=== PATIENT | female | born 1935 | race African-American/Black ===

== ENCOUNTER 2017-05-22 07:18 | Inpatient (IN) | payer MEDICARE, BC ==
[~2017-05-22] VITALS: Ht 160 cm; Wt 110.4 kg
[~2017-05-22 07:18] MED LIST: AMARYL PO; ASPIRIN E.C. 8181 MG PO; COUMADIN 77.5 MG/TAB PO; COUMADIN4 MG PO; COZAAR 25MG25 MG/TAB PO; COZAAR100 MG PO; CRESTOR40 MG PO; DIOVAN160 MG PO; JANUVIA 100MG100 MG PO; JANUVIA100 MG PO; LASIX 40MG TABL40 MG PO; LEVEMIR100 U/ML SC; LIPITOR 40MG TA40 MG PO; LIPITOR40 MG PO; MS CONTIN 330 MG/TAB PO; NIFEDIPINE PO; NORCO 325 MG-51 TAB PO; NOVLOG SQ; PRILOTC PO; PROCARDIA XL90 MG PO; TYLENOL 325MG325 MG PO; WARFARIN SODIUM5 MG PO
[2017-05-22 08:08] LABS: ARTERIAL BLD GAS O2 SATURATION 91.2 % (92-100); ARTERIAL BLD GAS TCO2 CT 18.3; ARTERIAL BLOOD GAS BASE EXCESS -8.1 (-2-2); ARTERIAL BLOOD GAS HCO3 17.3 meq/L (22-26); ARTERIAL BLOOD GAS PCO2 34.5 mmHg (35-45); ARTERIAL BLOOD GAS PO2 67.3 mmHg (80-100); ARTERIAL BLOOD GAS pH 7.32 (7.35-7.45)
[2017-05-22] MEDS ORDERED: PROCARDIA XL90 MG PO (08:20)
[2017-05-22] MEDS ORDERED: PRIL40 PO (08:21)
[2017-05-22] MEDS ORDERED: JANUVIA 100MG100 MG PO (08:21)
[2017-05-22] MEDS ORDERED: PRILOTC PO (08:22)
[2017-05-22] MEDS ORDERED: COZAAR100 MG PO (08:22)
[2017-05-22] MEDS ORDERED: LASIX 40MG TABL40 MG PO (08:23)
[2017-05-22] MEDS ORDERED: CRESTOR40 MG PO (08:24)
[2017-05-22] MEDS ORDERED: COUMADIN 77.5 MG/TAB PO (08:24)
[2017-05-22 08:46] LABS: INFLUENZA A NEGATIVE; INFLUENZA B NEGATIVE
[2017-05-22 10:33] LABS: BASO % 0.3 % (0.0-2.0); EOS % 0.3 % (0-4.0); GRAN # 4.6 (1.4-6.5); GRAN % 70.5 % (42.2-75.2); LYMPH # 1.4 (1.2-3.4); LYMPH % 22.3 % (20.0-51.0); MEAN CELL VOLUME 88 fl (80.0-100.0); MEAN CORPUSCULAR HGB CONC 29 g/dl (33.0-37.0); MEAN PLATELET VOLUME 11.6 fl (7.4-10.4); MONO # 0.4 (0.1-0.6); MONO % 6.3 % (1.7-9.3); PLATELET COUNT 173 K/mm3 (130-400); RED BLOOD COUNT 2.75 M/mm3 (4.10-5.30); REDCELL DISTRIBUTION WIDTH-CV 16.1 % (11.5-14.5)
[2017-05-22 10:39] LABS: HEMATOCRIT 24.1 % (37.0-47.0); HEMOGLOBIN 6.9 g/dl (12.5-16.0); MEAN CORPUSCULAR HEMOGLOBIN 25 pg (27.0-31.0)
[2017-05-22 10:53] LABS: INR 2.7 (0.8-3.0); PROTHROMBIN TIME 31.4 SECONDS (9.7-12.8)
[2017-05-22 11:01] LABS: ALBUMIN 4.1 gm/dL (3.5-5.0); BILIRUBIN,TOTAL 0.3 mg/dL (0.0-1.0); POTASSIUM 5.4 mmol/L (3.4-5.0); TOTAL PROTEIN 7.7 gm/dL (6.4-8.2)
[2017-05-22 11:12] LABS: TROPONIN-I 0.02 ng/mL (0.000-0.034)
[2017-05-22 11:15] LABS: CREATININE, serum 5.23 mg/dL (0.52-1.25)
[2017-05-22 13:02] VITALS: BP 151/65; PULSE 55; TEMP 98
[2017-05-22] MEDS ORDERED: COUMADIN 6MG6 MG/TAB PO (13:09)
[2017-05-22 13:22] LABS: COLLECTION METHOD CATHETER
[2017-05-22 13:27] LABS: PH 5 (5-8); SQUAMOUS EPITHELIAL 0-2 /hpf; URINE APPEARANCE Hazy; URINE BACTERIA None Seen /hpf; URINE BILIRUBIN Negative (NEGATIVE); URINE BLOOD 2+ (NEGATIVE); URINE COLOR Straw; URINE GLUCOSE Negative (NEGATIVE); URINE KETONE Negative (NEGATIVE); URINE LEUKOCYTE ESTERASE Negative (NEGATIVE); URINE NITRATE Negative (NEGATIVE); URINE PROTEIN(semi-quant) 1+ (NEGATIVE); URINE UROBILINOGEN Negative (NEGATIVE); URINE WBC 0-2 /hpf
[2017-05-22 13:32] LABS: URINE PROTEIN:CREAT RATIO 0.47 (0.00-0.14)
[2017-05-22 14:50] LABS: PHOSPHOROUS 4.8 mg/dL (2.5-4.5)
[2017-05-22 16:48] VITALS: BP 151/75; PULSE 84; TEMP 98.1
[2017-05-22 21:03] VITALS: BP 141/66; PULSE 66; TEMP 98.1
[2017-05-22 23:28] VITALS: BP 150/72; PULSE 54; TEMP 98.2
[2017-05-23] VITALS (8 sets, daily range): BP systolic 114–146; BP diastolic 58–86; PULSE 57–124; TEMP 97.4–98.5
[2017-05-23 08:01] LABS: INR 2.6 (0.8-3.0); PROTHROMBIN TIME 30.1 SECONDS (9.7-12.8)
[2017-05-23 08:08] LABS: ALBUMIN 3.7 gm/dL (3.5-5.0); CALCIUM 6.7 mg/dL (8.4-10.2); PHOSPHOROUS 4.8 mg/dL (2.5-4.5); POTASSIUM 5.3 mmol/L (3.4-5.0)
[2017-05-23 08:10] LABS: CREATININE, serum 5.24 mg/dL (0.52-1.25)
[2017-05-23 08:43] LABS: BASO % 0.3 % (0.0-2.0); EOS # 0.1 (0.0-0.7); GRAN # 3.6 (1.4-6.5); LYMPH # 1.6 (1.2-3.4); LYMPH % 27.6 % (20.0-51.0); MEAN CELL VOLUME 87 fl (80.0-100.0); MEAN CORPUSCULAR HGB CONC 29 g/dl (33.0-37.0); MEAN PLATELET VOLUME 12.2 fl (7.4-10.4); MONO # 0.5 (0.1-0.6); MONO % 7.8 % (1.7-9.3); PLATELET COUNT 161 K/mm3 (130-400); RED BLOOD COUNT 2.63 M/mm3 (4.10-5.30); REDCELL DISTRIBUTION WIDTH-CV 16.1 % (11.5-14.5)
[2017-05-23 08:48] LABS: HEMATOCRIT 22.9 % (37.0-47.0); HEMOGLOBIN 6.7 g/dl (12.5-16.0); MEAN CORPUSCULAR HEMOGLOBIN 25 pg (27.0-31.0)
[2017-05-24 00:13] VITALS: BP 140/83; PULSE 71; TEMP 97.7
[2017-05-24 03:57] VITALS: BP 128/92; PULSE 54; TEMP 97.5
[2017-05-24 06:59] LABS: INR 2.4 (0.8-3.0); PROTHROMBIN TIME 28.3 SECONDS (9.7-12.8)
[2017-05-24 07:01] LABS: BASO % 0.5 % (0.0-2.0); EOS # 0.1 (0.0-0.7); EOS % 2.5 % (0-4.0); GRAN # 3.5 (1.4-6.5); GRAN % 63.7 % (42.2-75.2); LYMPH # 1.4 (1.2-3.4); LYMPH % 24.7 % (20.0-51.0); MEAN CELL VOLUME 89 fl (80.0-100.0); MEAN CORPUSCULAR HGB CONC 30 g/dl (33.0-37.0); MEAN PLATELET VOLUME 11.9 fl (7.4-10.4); MONO # 0.5 (0.1-0.6); MONO % 8.2 % (1.7-9.3); PLATELET COUNT 153 K/mm3 (130-400); RED BLOOD COUNT 2.89 M/mm3 (4.10-5.30); REDCELL DISTRIBUTION WIDTH-CV 15.9 % (11.5-14.5)
[2017-05-24 07:08] LABS: ALBUMIN 3.7 gm/dL (3.5-5.0); BILIRUBIN,TOTAL 0.3 mg/dL (0.0-1.0); PHOSPHOROUS 4.9 mg/dL (2.5-4.5); POTASSIUM 5.1 mmol/L (3.4-5.0); TOTAL PROTEIN 7.1 gm/dL (6.4-8.2)
[2017-05-24 07:09] LABS: HEMATOCRIT 25.6 % (37.0-47.0); HEMOGLOBIN 7.6 g/dl (12.5-16.0); MEAN CORPUSCULAR HEMOGLOBIN 26 pg (27.0-31.0)
[2017-05-24 07:16] LABS: CREATININE, serum 5.23 mg/dL (0.52-1.25)
[2017-05-24 08:02] VITALS: BP 133/63; PULSE 65; TEMP 98
[2017-05-24 12:02] VITALS: BP 138/72; PULSE 65; TEMP 98.4
[2017-05-24 16:16] VITALS: BP 151/68; PULSE 67; TEMP 98.4
[2017-05-24 20:45] VITALS: BP 150/92; PULSE 46; TEMP 98
[2017-05-25 01:36] VITALS: BP 127/60; PULSE 66; TEMP 98.4
[2017-05-25 07:32] LABS: BASO % 0.8 % (0.0-2.0); EOS # 0.1 (0.0-0.7); EOS % 2.7 % (0-4.0); GRAN # 3.1 (1.4-6.5); GRAN % 58.9 % (42.2-75.2); LYMPH # 1.5 (1.2-3.4); LYMPH % 28.6 % (20.0-51.0); MEAN CELL VOLUME 88 fl (80.0-100.0); MEAN CORPUSCULAR HGB CONC 30 g/dl (33.0-37.0); MEAN PLATELET VOLUME 12.2 fl (7.4-10.4); MONO # 0.5 (0.1-0.6); MONO % 8.8 % (1.7-9.3); PLATELET COUNT 152 K/mm3 (130-400); RED BLOOD COUNT 2.83 M/mm3 (4.10-5.30); REDCELL DISTRIBUTION WIDTH-CV 15.7 % (11.5-14.5)
[2017-05-25 07:34] LABS: HEMATOCRIT 24.9 % (37.0-47.0); HEMOGLOBIN 7.5 g/dl (12.5-16.0); MEAN CORPUSCULAR HEMOGLOBIN 27 pg (27.0-31.0)
[2017-05-25 07:49] LABS: ALBUMIN 3.5 gm/dL (3.5-5.0); CALCIUM 6.8 mg/dL (8.4-10.2); INR 2.3 (0.8-3.0); PHOSPHOROUS 4.8 mg/dL (2.5-4.5); POTASSIUM 4.7 mmol/L (3.4-5.0); PROTHROMBIN TIME 27.3 SECONDS (9.7-12.8)
[2017-05-25 07:52] LABS: CREATININE, serum 4.97 mg/dL (0.52-1.25)
[2017-05-25 08:11] VITALS: BP 134/62; PULSE 66; TEMP 98.6
[2017-05-25 11:45] VITALS: BP 145/51; PULSE 65; TEMP 98.1
[2017-05-25 15:42] VITALS: BP 148/73; PULSE 66; TEMP 98
[2017-05-25 20:13] VITALS: BP 137/57; PULSE 66; TEMP 98.1
[2017-05-25 23:12] VITALS: BP 137/61; PULSE 64; TEMP 98.1
[2017-05-26 03:04] VITALS: BP 137/90; PULSE 62; TEMP 98.5
[2017-05-26 06:14] LABS: BASO % 0.6 % (0.0-2.0); EOS # 0.2 (0.0-0.7); EOS % 3.1 % (0-4.0); GRAN # 3.1 (1.4-6.5); LYMPH # 1.4 (1.2-3.4); LYMPH % 27.6 % (20.0-51.0); MEAN CELL VOLUME 88 fl (80.0-100.0); MEAN CORPUSCULAR HGB CONC 30 g/dl (33.0-37.0); MEAN PLATELET VOLUME 12.1 fl (7.4-10.4); MONO # 0.4 (0.1-0.6); MONO % 8.5 % (1.7-9.3); PLATELET COUNT 164 K/mm3 (130-400); RED BLOOD COUNT 2.95 M/mm3 (4.10-5.30); REDCELL DISTRIBUTION WIDTH-CV 15.8 % (11.5-14.5)
[2017-05-26 06:27] LABS: HEMATOCRIT 25.8 % (37.0-47.0); HEMOGLOBIN 7.7 g/dl (12.5-16.0); MEAN CORPUSCULAR HEMOGLOBIN 26 pg (27.0-31.0)
[2017-05-26 06:34] LABS: ALBUMIN 3.5 gm/dL (3.5-5.0); CALCIUM 6.7 mg/dL (8.4-10.2); INR 2.5 (0.8-3.0); PHOSPHOROUS 4.5 mg/dL (2.5-4.5); POTASSIUM 4.5 mmol/L (3.4-5.0); PROTHROMBIN TIME 29.8 SECONDS (9.7-12.8)
[2017-05-26 06:43] LABS: CREATININE, serum 4.8 mg/dL (0.52-1.25)
[2017-05-26 07:58] VITALS: BP 151/55; PULSE 66; TEMP 98.3
[2017-05-26] MEDS ORDERED: AMOXICILLIN 50500 MG PO (11:17)
[2017-05-26] MEDS ORDERED: FERROUS SU325 MG/TAB PO (11:18)
[2017-05-26] MEDS ORDERED: ZITHROMAX TRI-500 MG PO (11:21)
[2017-05-26 12:28] VITALS: BP 151/55; PULSE 66; TEMP 98.3
== END 2017-05-26 13:05 | DRG 194 ==
LOC: COL.ER 07:18 → MEDICAL 11:44
PROVIDERS: Emergency Medicine; Internal Medicine Nephrology
PROC: 02HV33Z Insertion of Infusion Device into Superior Vena Cava, Percutaneous Approach (ICD-10-PCS; principal; 2017-05-23)
DX: J18.9 Pneumonia, unspecified organism (principal); N18.4 Chronic kidney disease, stage 4 (severe); I69.351 Hemiplegia and hemiparesis following cerebral infarction affecting right dominant side; N17.9 Acute kidney failure, unspecified; E87.2 Acidosis; Z68.42 Body mass index [BMI] 45.0-49.9, adult; J90 Pleural effusion, not elsewhere classified; I12.9 Hypertensive chronic kidney disease with stage 1 through stage 4 chronic kidney disease, or unspecified chronic kidney disease; E11.22 Type 2 diabetes mellitus with diabetic chronic kidney disease; I25.10 Atherosclerotic heart disease of native coronary artery without angina pectoris; Z95.5 Presence of coronary angioplasty implant and graft; D63.1 Anemia in chronic kidney disease; Z79.4 Long term (current) use of insulin; E66.01 Morbid (severe) obesity due to excess calories; I27.22 Pulmonary hypertension due to left heart disease; I08.3 Combined rheumatic disorders of mitral, aortic and tricuspid valves; E87.5 Hyperkalemia
CPT/HCPCS: C1751; C1894; J0696; J0881; J1644; J1815; J1940; P9016